=== PATIENT | male | born 1990 | race African-American/Black ===

== ENCOUNTER 2022-05-26 17:21 | Emergency (ER) | payer OTHER ==
--- NOTE | 2022-05-26 17:49 | EDPHYS ---
Physician Documentation [facility] Name: Ever Obrien II Age: 31 yrs Sex: Male : 1990 Arrival Date: 05/26/2022 Time: 17:22 Bed IW4 Private MD: ED Physician Rosalva Harper HPI: 05/26 17:45 This 31 yrs old Black Male presents to ER via Ambulatory with complaints of jh7 insomnia-needs work note. 17:45 Patient reports that he had fatigue from difficulty sleeping recently. Stated that he jh7 slept well last night and just needs a work note to return. No complaints at this time.. Historical: - Allergies: 17:48 No Known Allergies; ss ROS: 17:45 Constitutional: Negative for fever, chills, and weight loss, Cardiovascular: Negative jh7 for chest pain, palpitations, and edema, Respiratory: Negative for shortness of breath, cough, wheezing, and pleuritic chest pain, Abdomen/GI: Negative for abdominal pain, nausea, vomiting, diarrhea, and constipation, MS/Extremity: Negative for injury and deformity, Skin: Negative for injury, rash, and discoloration, Neuro: Negative for headache, weakness, numbness, tingling, and seizure. 17:45 All other systems are negative. Exam: 17:45 Constitutional: This is a well developed, well nourished patient who is awake, alert, jh7 and in no acute distress. Cardiovascular: Regular rate and rhythm with a normal S1 and S2. No gallops, murmurs, or rubs. Normal PMI, no JVD. No pulse deficits. Respiratory: Lungs have equal breath sounds bilaterally, clear to auscultation and percussion. No rales, rhonchi or wheezes noted. No increased work of breathing, no retractions or nasal flaring. Abdomen/GI: Soft, non-tender, with normal bowel sounds. No distension or tympany. No guarding or rebound. No evidence of tenderness throughout. Skin: Warm, dry with normal turgor. Normal color with no rashes, no lesions, and no evidence of cellulitis. MS/ Extremity: Pulses equal, no cyanosis. Neurovascular intact. Full, normal range of motion. Neuro: Awake and alert, GCS 15, oriented to person, place, time, and situation. Normal gait. Vital Signs: 17:45 BP 110 / 92; Pulse 78; Resp 20; Temp 97.3(TE); Pulse Ox 100% on R/A; Pain 0/10; ss MDM: 17:22 Patient medically screened. [facility] 17:30 Differential Diagnosis Normal exam. Data reviewed: vital signs, nurses notes. Data [facility] interpreted: Pulse oximetry: is 100 %. Interpretation: normal. Counseling: I had a detailed discussion with the patient and/or guardian regarding: the historical points, exam findings, and any diagnostic results supporting the discharge/admit diagnosis, to return to the emergency department if symptoms worsen or persist or if there are any questions or concerns that arise at home. Administered Medications: No medications were administered Disposition Summary: 05/26/22 17:49 Discharge Ordered Location: Home [facility] Problem: new [facility] Symptoms: are resolved [facility] Condition: Stable [facility] Diagnosis - Insomnia [facility] Followup: [facility] - With: Private Physician - When: 2 - 3 days - Reason: Recheck today's complaints Discharge Instructions: - Discharge Summary Sheet [facility] - Insomnia [facility] Forms: - Medication Reconciliation Form [facility] - Thank You Letter [facility] - Work release form [facility] Addendum: 05/29/2022 22:41 STAFF ATTESTATION STATEMENT: I was immediately available onsite in the emergency s d2 department for consultation in the care of this patient. I did not see or examine this patient. Rosalva Harper MD. Signatures: Nohemi Min, KATHERINE RN Shantelle Mcrae, TAR HEATER [place] [id number] Rosalva Harper MD MD sd2
--- NOTE | 2022-05-26 17:49 | ER ---
Nurse's Notes [facility] Name: Ever Obrien II Age: 31 yrs Sex: Male : 1990 Arrival Date: 05/26/2022 Time: 17:22 Bed IW4 Private MD: Diagnosis: Insomnia Presentation: 05/26 17:45 Chief complaint: Patient states: Needs a work note because of sleeping issues. Pt ss states after he got some rest earlier he feels better. Coronavirus screen: Client denies travel out of the [place] in the last 14 days. Ebola Screen: Patient denies exposure to infectious person. Patient denies travel to an Ebola-affected area in the 21 days before illness onset. Initial Sepsis Screen: Does the patient meet any 2 criteria? No. Patient's initial sepsis screen is negative. Does the patient have a suspected source of infection? No. Patient's initial sepsis screen is negative. Risk Assessment: Do you want to hurt yourself or someone else? Patient reports no desire to harm self or others. Onset of symptoms is unknown. 17:45 Method Of Arrival: Ambulatory ss 17:45 Acuity: [place] 5 ss Historical: - Allergies: 17:48 No Known Allergies; ss Assessment: 17:55 General: Appears in no apparent distress. comfortable, Behavior is calm, cooperative. ss Pain: Denies pain. Neuro: Level of Consciousness is awake, alert, obeys commands, Oriented to person, place, time, situation. Cardiovascular: Capillary refill < 3 seconds is brisk in bilateral fingers. Respiratory: Airway is patent Respiratory effort is even, unlabored, Respiratory pattern is regular, symmetrical. Derm: Skin is intact, is healthy with good turgor, Skin is pink, warm \T\ dry. normal. Musculoskeletal: Range of motion: intact in all extremities. Vital Signs: 17:45 BP 110 / 92; Pulse 78; Resp 20; Temp 97.3(TE); Pulse Ox 100% on R/A; Pain 0/10; ss ED Course: 17:22 Patient arrived in ED. am2 17:22 [facility] Barbour [facility] 17:22 Rosalva Harper MD is Attending Physician. [facility] 17:48 Triage completed. ss 17:48 Arm band placed on right wrist. ss 17:56 Nohemi Min, RN is Primary Nurse. 17:56 No provider procedures requiring assistance completed. Patient did not have IV access ss during this emergency room visit. Administered Medications: No medications were administered Outcome: 17:49 Discharge ordered by . jamir 17:56 Discharged to home ambulatory. 17:56 Condition: good 17:56 Condition: good 17:56 Discharge instructions given to patient, Instructed on discharge instructions, follow up and referral plans. Demonstrated understanding of instructions, follow-up care. 17:57 Patient left the ED. Signatures: Nohemi Min, RN RN Oly Styles am2 Shantelle Barbour, LUMBER PILER OPERATOR LUMBER PILER OPERATOR [facility]
[2022-05-26 18:42] VITALS: BP 110/92; TEMP 97.3; O2SAT 100
== END 2022-05-26 17:57 | disposition home or self-care (01) ==
LOC: ER 17:21
DX: G47.00 Insomnia, unspecified (principal)
CPT/HCPCS: 99281

== ENCOUNTER 2022-08-13 18:25 | Emergency (ER) | payer OTHER ==
[2022-08-13] MEDS ORDERED: ONDANSETRON 4 MG/2 ML VIAL ONE (19:23)
[2022-08-13] MEDS ORDERED: MORPHINE 4 MG/ML SYR ONE (19:23)
[2022-08-13] MEDS ORDERED: NA CHLORIDE 0.9% 1,000 ML ONE (19:24)
[2022-08-13 19:41] LABS: Absolute Lymphocytes (CBC) 1.4 K/uL (0.7-4.9); Hematocrit 41.9 % (39.6-49.0); Lymphocytes % 18.3 % (15.3-44.8); MCV 82.5 fL (80-100); MPV 7.6 fL (7.6-11.3); RBC Red Blood Cell Count 5.08 M/uL (4.33-5.43)
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
[2022-08-13 20:21] LABS: Potassium 3.8 mEq/L (3.5-5.1)
[2022-08-13] MEDS ORDERED: FENTANYL CITR 100 MCG/2 ML ONE (20:21)
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
[2022-08-14 08:41] VITALS: TEMP 99.2
[2022-08-14 08:54] VITALS: BP 140/94; O2SAT 97
== END 2022-08-13 21:45 | disposition home or self-care (01) ==
LOC: ER 18:25
DX: M25.572 Pain in left ankle and joints of left foot (principal); R07.9 Chest pain, unspecified; M54.9 Dorsalgia, unspecified; V43.53XA Car driver injured in collision with pick-up truck in traffic accident, initial encounter; F17.290 Nicotine dependence, other tobacco product, uncomplicated
CPT/HCPCS: 85025; 80048; 36415; 86900; 86850; 86901; 70450; 72125; 71260; 74177; 71045; 72170; 73630; 73590; Q9967; J3010; J2405; J7030

== ENCOUNTER 2024-01-12 08:02 | Emergency (ER) | payer BC, OTHER ==
--- NOTE | 2024-01-12 08:40 | EDPHYS ---
Physician Documentation [facility] Name: Ever Obrien II Age: 33 yrs Sex: Male : 1990 Arrival Date: 01/12/2024 Time: 08:02 Bed IW2 Private MD: ED Physician Wisam Pennington HPI: 01/11 08:37 This 33 yrs old Black Male presents to ER via Ambulatory with complaints of Toothache. rn 08:37 The patient presents with pain, swelling. Onset: The symptoms/episode began/occurred 2 rn day(s) ago. Duration: The symptoms are continuous. Modifying factors: The symptoms are alleviated by over the counter medications, the symptoms are aggravated by chewing. Severity of symptoms: At their worst the symptoms were moderate, in the emergency department the symptoms have improved. The patient has experienced a previous episode. Patient reports left lower dental pain, has had before, needs dental procedure, woke up with pain and swelling to the left jaw. No fever or chills. Historical: - Allergies: 08:31 No Known Allergies; ll1 - PSHx: 08:31 None; ll1 - Immunization history:: Adult Immunizations up to date. - Infectious Disease History:: Denies. - Social history:: Smoking status: Reported history of juuling and/or vaping. - Family history:: not pertinent. - Hospitalizations: : No recent hospitalization is reported. ROS: 08:37 Constitutional: Negative for fever, chills, and weight loss, ENT: Positive for dental rn pain Respiratory: Negative for shortness of breath, cough, wheezing, and pleuritic chest pain, Exam: 08:37 Constitutional: This is a well developed, well nourished patient who is awake, alert, rn and in no acute distress. ENT: Deep cavity left lower tooth, no evidence of abscess or buccal space swelling Vital Signs: 08:31 BP 149 / 93; Pulse 53; Resp 18; Temp 98.7; Pulse Ox 99% ; Weight 77.11 kg; Height 5 ft. ll1 7 in. ; Pain 6/10; 08:31 BP 149 / 73; Pulse 53; Resp 17; Temp 98.7; Pulse Ox 99% ; ll1 08:31 Body Mass Index 26.63 (77.11 kg, 170.18 cm) ll1 08:31 Pain Scale: Adult ll1 MDM: 08:06 Patient medically screened. rn 08:37 Differential diagnosis: dental caries, dental abscess. Data reviewed: vital signs, rn nurses notes, and as a result, I will discharge patient. Counseling: I had a detailed discussion with the patient and/or guardian regarding the historical points, exam findings, and any diagnostic results supporting the discharge/admit diagnosis, the need for outpatient follow up, to return to the emergency department if symptoms worsen or persist or if there are any questions or concerns that arise at home. Special discussion: I discussed with the patient/guardian in detail that at this point there is no indication for admission to the hospital. It is understood, however, that if the symptoms persist or worsen the patient needs to return immediately for re-evaluation. Based on the history and exam findings, there is no indication for further emergent testing or inpatient evaluation. I discussed with the patient/guardian the need to see a dentist for further evaluation of the symptoms. Administered Medications: No medications were administered Disposition Summary: 01/12/24 08:39 Discharge Ordered Notes: Location: Home rn Problem: an acute exacerbation rn Symptoms: have improved rn Condition: Stable rn Diagnosis - Dental caries, unspecified rn Followup: rn - With: Private Physician - When: As needed - Reason: Recheck today's complaints, Re-evaluation by your physician Discharge Instructions: - Discharge Summary Sheet rn - Dental Caries, Adult rn - Dental Pain rn Forms: - Medication Reconciliation Form rn - Antibiotic garnett feeder - Prescription Opioid Use rn - Patient Portal Instructions rn - Leadership Thank You Letter rn - Work release form ll1 Prescriptions: - Amoxicillin 875 mg Oral Tablet - take 1 tablet ORAL route every 12 hours for 10 days; 20 tablet; Refills: 0, rn Product Selection Permitted - Ibuprofen 800 mg Oral Tablet - take 1 tablet ORAL route every 12 hours As needed take with food; 20 tablet; rn Refills: 0, Product Selection Permitted Signatures: Wisam Pennington MD MD rn Lewis, Lynsay, RN RN 1
--- NOTE | 2024-01-12 08:40 | ER ---
Nurse's Notes [facility] Name: Ever Obrien II Age: 33 yrs Sex: Male : 1990 Arrival Date: 01/12/2024 Time: 08:02 Bed IW2 Private MD: Diagnosis: Dental caries, unspecified Presentation: 01/11 08:31 Chief complaint: Patient states: L lower jaw tooth pain for 3 days. Coronavirus screen: ll1 Client denies travel out of the [place] in the last 14 days. At this time, the client does not indicate any symptoms associated with coronavirus-19. Ebola Screen: Patient denies travel to an Ebola-affected area in the 21 days before illness onset. Initial Sepsis Screen: Does the patient meet any 2 criteria? No. Patient's initial sepsis screen is negative. Does the patient have a suspected source of infection? No. Patient's initial sepsis screen is negative. Risk Assessment: Do you want to hurt yourself or someone else? Patient reports no desire to harm self or others. Onset of symptoms was January 10, 2024. 08:31 Method Of Arrival: Ambulatory ll1 08:31 Acuity: [place] 5 ll1 Triage Assessment: 08:31 General: Appears uncomfortable, Behavior is calm, cooperative, appropriate for age. ll1 Pain: Complains of pain in L lower jaw. 08:31 EENT: Reports pain in left jaw. ll1 Historical: - Allergies: 08:31 No Known Allergies; ll1 - PSHx: 08:31 None; ll1 - Immunization history:: Adult Immunizations up to date. - Infectious Disease History:: Denies. - Social history:: Smoking status: Reported history of juuling and/or vaping. - Family history:: not pertinent. - Hospitalizations: : No recent hospitalization is reported. Screenin:47 [facility] ED Fall Risk Assessment (Adult) History of falling in the last 3 months, ll1 including since admission No falls in past 3 months (0 pts) Confusion or Disorientation No (0 pts) Intoxicated or Sedated No (0 pts) Impaired Gait No (0 pts) Mobility Assist Device Used No (0 pt) Altered Elimination No (0 pt) Score/Fall Risk Level 0 - 2 = Low Risk Maintained a safe environment, Hourly rounding (assess needs \T\ fall precautionary measures) done. Abuse screen: Denies threats or abuse. Nutritional screening: No deficits noted. Tuberculosis screening: No symptoms or risk factors identified. Assessment: 08:47 Reassessment: No changes from previously documented assessment. Patient and/or family ll1 updated on plan of care and expected duration. Pain level reassessed. Patient is alert, oriented x 3, equal unlabored respirations, skin warm/dry/pink. Vital Signs: 08:31 BP 149 / 93; Pulse 53; Resp 18; Temp 98.7; Pulse Ox 99% ; Weight 77.11 kg; Height 5 ft. ll1 7 in. ; Pain 6/10; 08:31 BP 149 / 73; Pulse 53; Resp 17; Temp 98.7; Pulse Ox 99% ; ll1 08:31 Body Mass Index 26.63 (77.11 kg, 170.18 cm) ll1 08:31 Pain Scale: Adult ll1 ED Course: 08:06 Patient arrived in ED. ra3 08:06 Wisam Pennington MD is Attending Physician. rn 08:30 Arm band placed on. ll1 08:32 Triage completed. ll1 08:47 Patient has correct armband on for positive identification. Provided Education on: ll1 finish all prescribed antibiotics. 08:47 No provider procedures requiring assistance completed. Patient did not have IV access ll1 during this emergency room visit. Administered Medications: No medications were administered Medication: 09:51 VIS not applicable for this client. ll1 Outcome: 08:39 Discharge ordered by . rn 08:47 Patient left the ED. ll1 08:47 Discharged to home ambulatory, ll1 08:47 Condition: stable 08:47 Discharge instructions given to patient, Instructed on discharge instructions, follow up and referral plans. medication usage, Demonstrated understanding of instructions, follow-up care, medications, Prescriptions given X 2, Signatures: Wisam Pennington MD MD rn Lewis, Lynsay, RN RN [email or web address] Susan Colvin ra3
--- OUTSIDE RECORDS SUMMARY | 2024-01-12 14:41 | XMS REPORT | Continuity of Care Document ---
Author Name Unknown Address [address] [place] [address] [place] Address [address] [place] [address] 1 [address] [place] [address] Care Team Providers Care Process Improvement Manager Name Role Phone Unavailable Unavailable Unavailable Encounters Start Date/Time End Date/Time Encounter Type Admission Type Attending Clinicians Care Facility Care Department Encounter ID Source 2023-07-03 09:15:30 2023-07-03 09:15:30 Outpatient [facility] [id number] Richi Layton
== END 2024-01-12 08:47 | disposition home or self-care (01) ==
LOC: ER 08:02
DX: K02.9 Dental caries, unspecified (principal)

== ENCOUNTER 2024-04-15 07:51 | Emergency (ER) | payer SELFPAY ==
--- OUTSIDE RECORDS SUMMARY | 2024-04-15 07:53 | XMS REPORT | Continuity of Care Document ---
Author Name Unknown Address [address] [place] [address] [place]connect Address [address] [place] [address] 1 495 [place] [address] Care Team Providers Care Civil Preparedness Coordinator Name Role Phone Unavailable Unavailable Unavailable Encounters Start Date/Time End Date/Time Encounter Type Admission Type Attending Clinicians Care Facility Care Department Encounter ID Source 2023-07-03 09:15:30 2023-07-03 09:15:30 Outpatient [facility] [id number] Richi Layton
--- NOTE | 2024-04-15 08:06 | EDPHYS ---
Physician Documentation [facility] Name: Ever Obrien II Age: 33 yrs Sex: Male : 1990 Arrival Date: 04/15/2024 Time: 07:51 Bed 11 Private MD: ED Physician Waqas Daniel HPI: 04/15 08:01 This 33 yrs old Black Male presents to ER via Unassigned with complaints of work susan release. 08:01 The patient presents to the emergency department with nausea, vomiting, that is susan intermittent. Onset: The symptoms/episode began/occurred 2 day(s) ago. Possible causes: unknown. The symptoms are aggravated by nothing. The symptoms are alleviated by nothing. Associated signs and symptoms: The patient has no apparent associated signs or symptoms. Severity of symptoms: At their worst the symptoms were mild in the emergency department the symptoms have resolved and did so just prior to arrival. The patient has not experienced similar symptoms in the past. Historical: - Allergies: 08:03 No Known Allergies; ss - Home Meds: 08:03 None [Active]; ss - PMHx: 08:03 None; ss - PSHx: 08:03 None; ss - Immunization history:: Adult Immunizations up to date. - Infectious Disease History:: Denies. - Family history:: not pertinent. - Social history:: Smoking status: Patient denies any tobacco usage or history of. ROS: 08:01 Constitutional: Negative for fever, chills, and weight loss, Eyes: Negative for injury, susan pain, redness, and discharge, ENT: Negative for injury, pain, and discharge, Neck: Negative for injury, pain, and swelling, Cardiovascular: Negative for chest pain, palpitations, and edema, Respiratory: Negative for shortness of breath, cough, wheezing, and pleuritic chest pain, Back: Negative for injury and pain, : Negative for injury, bleeding, discharge, and swelling, MS/Extremity: Negative for injury and deformity, Skin: Negative for injury, rash, and discoloration, Neuro: Negative for headache, weakness, numbness, tingling, and seizure, Psych: Negative for depression, anxiety, suicide ideation, homicidal ideation, and hallucinations, Allergy/Immunology: Negative for hives, rash, and allergies, Endocrine: Negative for neck swelling, polydipsia, polyuria, polyphagia, and marked weight changes, Hematologic/Lymphatic: Negative for swollen nodes, abnormal bleeding, and unusual bruising, 08:01 Abdomen/GI: Positive for nausea and vomiting, diarrhea, Exam: 08:01 Constitutional: This is a well developed, well nourished patient who is awake, alert, susan and in no acute distress. Head/Face: Normocephalic, atraumatic. Eyes: Pupils equal round and reactive to light, extra-ocular motions intact. Lids and lashes normal. Conjunctiva and sclera are non-icteric and not injected. Cornea within normal limits. Periorbital areas with no swelling, redness, or edema. ENT: Nares patent. No nasal discharge, no septal abnormalities noted. Tympanic membranes are normal and external auditory canals are clear. Oropharynx with no redness, swelling, or masses, exudates, or evidence of obstruction, uvula midline. Mucous membranes moist. Neck: Trachea midline, no thyromegaly or masses palpated, and no cervical lymphadenopathy. Supple, full range of motion without nuchal rigidity, or vertebral point tenderness. No Meningismus. Chest/axilla: Normal chest wall appearance and motion. Nontender with no deformity. No lesions are appreciated. Cardiovascular: Regular rate and rhythm with a normal S1 and S2. No gallops, murmurs, or rubs. Normal PMI, no JVD. No pulse deficits. Respiratory: Lungs have equal breath sounds bilaterally, clear to auscultation and percussion. No rales, rhonchi or wheezes noted. No increased work of breathing, no retractions or nasal flaring. Abdomen/GI: Soft, non-tender, with normal bowel sounds. No distension or tympany. No guarding or rebound. No evidence of tenderness throughout. Back: No spinal tenderness. No costovertebral tenderness. Full range of motion. Skin: Warm, dry with normal turgor. Normal color with no rashes, no lesions, and no evidence of cellulitis. MS/ Extremity: Pulses equal, no cyanosis. Neurovascular intact. Full, normal range of motion. Neuro: Awake and alert, GCS 15, oriented to person, place, time, and situation. Cranial nerves II-XII grossly intact. Motor strength 5/5 in all extremities. Sensory grossly intact. Cerebellar exam normal. Normal gait. Psych: Awake, alert, with orientation to person, place and time. Behavior, mood, and affect are within normal limits. Vital Signs: 08:01 BP 152 / 84; Pulse 92; Resp 14; Temp 98(TE); Pulse Ox 100% on R/A; Weight 85.28 kg; ss Height 5 ft. 7 in. ; Pain 0/10; 08:01 Body Mass Index 29.44 (85.28 kg, 170.18 cm) 08:01 Pain Scale: Adult ss MDM: 08:00 Medical Screening Exam initiated [facility] 08:03 Differential diagnosis: Nonspecific abd pain, gastritis, pancreatitis, appendicitis, susan viral gastroenteritis, gastroenteritis. Data reviewed: vital signs, nurses notes, lab test result(s), EKG, radiologic studies, plain films. Consideration of Admission/Observation Escalation of care including admission/observation considered. I considered the following discharge prescriptions or medication management in the emergency department Medications were administered in the Emergency Department. See MAR. Test considered but Not performed: Labs: no labs. Historians other than the Patient: pt well informed. Care significantly affected by the following chronic conditions: Diabetes. Counseling: I had a detailed discussion with the patient and/or guardian regarding the historical points, exam findings, and any diagnostic results supporting the discharge/admit diagnosis, the need for outpatient follow up, for definitive care, a family practitioner. Administered Medications: No medications were administered Disposition Summary: 04/15/24 08:04 Discharge Ordered Notes: Location: Home susan Problem: new susan Symptoms: have improved susan Condition: Stable susan Diagnosis - Vomiting susan - Diarrhea, unspecified susan Followup: susan - With: Private Physician - When: 2 - 3 days - Reason: Recheck today's complaints, Continuance of care, Re-evaluation by your physician Discharge Instructions: - Food Choices to Help Relieve Diarrhea, Adult susan - Diarrhea, Adult susan - Diarrhea, Adult, [id number] susan - Vomiting, Adult susan - Discharge Summary Sheet ss Forms: - Medication Reconciliation Form ussan - Antibiotic Education susan - Prescription Opioid Use susan - Patient Portal Instructions susan - Leadership Thank You Letter susan - Work release form Signatures: Waqas Daniel MD MD cha Blanchard, Shelby, RN RN
--- NOTE | 2024-04-15 08:06 | ER ---
Nurse's Notes [facility] Name: Ever Obrien II Age: 33 yrs Sex: Male : 1990 Arrival Date: 04/15/2024 Time: 07:51 Bed 11 Private MD: Diagnosis: Vomiting;Diarrhea, unspecified Presentation: 04/15 08:01 Chief complaint: Patient states: "I had chills two days ago, and yesterday I had N/V/D. ss Today I feel 100 % better, but my work says I need a note from a doctor to go back.". Coronavirus screen: Client denies travel out of the [place] in the last 14 days. Ebola Screen: Patient denies exposure to infectious person. Patient denies travel to an Ebola-affected area in the 21 days before illness onset. Initial Sepsis Screen: Does the patient meet any 2 criteria? No. Patient's initial sepsis screen is negative. Does the patient have a suspected source of infection? No. Patient's initial sepsis screen is negative. Risk Assessment: Do you want to hurt yourself or someone else? Patient reports no desire to harm self or others. Onset of symptoms was April 13, 2024. 08:01 Method Of Arrival: Ambulatory ss 08:01 Acuity: [place] 5 ss Historical: - Allergies: 08:03 No Known Allergies; ss - Home Meds: 08:03 None [Active]; ss - PMHx: 08:03 None; ss - PSHx: 08:03 None; ss - Immunization history:: Adult Immunizations up to date. - Infectious Disease History:: Denies. - Family history:: not pertinent. - Social history:: Smoking status: Patient denies any tobacco usage or history of. Screenin:11 Abuse screen: Denies threats or abuse. Denies injuries from another. Nutritional ss screening: No deficits noted. Tuberculosis screening: Never had TB. Assessment: 08:11 General: Appears in no apparent distress. comfortable, well groomed, well developed, ss well nourished, Behavior is calm, cooperative. Pain: Denies pain. Neuro: Level of Consciousness is awake, alert, obeys commands, Oriented to person, place, time, situation. Respiratory: Airway is patent Respiratory effort is even, unlabored, Respiratory pattern is regular, symmetrical. GI: Pt reports he had N/V/D yesterday after eating shrimp, but reports he is much better today and is requesting a work note to go back on Thursday. EENT: Oral mucosa is moist. Derm: Skin is intact, is healthy with good turgor, Skin is pink, warm \\T\\ dry. normal. Vital Signs: 08:01 BP 152 / 84; Pulse 92; Resp 14; Temp 98(TE); Pulse Ox 100% on R/A; Weight 85.28 kg; ss Height 5 ft. 7 in. ; Pain 0/10; 08:01 Body Mass Index 29.44 (85.28 kg, 170.18 cm) 08:01 Pain Scale: Adult ss ED Course: 07:54 Patient arrived in ED. mg5 08:00 Waqas Daniel MD is Attending Physician. [facility] 08:03 Triage completed. 08:03 Arm band placed on right wrist. 08:11 Patient has correct armband on for positive identification. 08:11 No provider procedures requiring assistance completed. Patient did not have IV access ss during this emergency room visit. Administered Medications: No medications were administered Medication: 08:11 VIS not applicable for this client. ss Outcome: 08:04 Discharge ordered by . [facility] 08:11 Discharged to home ambulatory, with family, 08:11 Condition: good 08:11 Discharge instructions given to patient, significant other, Instructed on discharge instructions, follow up and referral plans. Demonstrated understanding of instructions, follow-up care, 08:13 Patient left the ED. Signatures: Waqas Daniel MD MD cha Blanchard, Shelby, RN RN Kathryn Rosales mg5
[2024-04-15 09:18] VITALS: BP 152/84; TEMP 98; O2SAT 100
== END 2024-04-15 08:13 | disposition home or self-care (01) ==
LOC: ER 07:51
DX: R11.10 Vomiting, unspecified (principal); R19.7 Diarrhea, unspecified
CPT/HCPCS: 99282

== ENCOUNTER 2024-06-14 13:27 | Emergency (ER) | payer SELFPAY ==
--- OUTSIDE RECORDS SUMMARY | 2024-06-14 13:30 | XMS REPORT | Continuity of Care Document ---
Author Name Unknown Address [address] [place] [address] [employer] Address [address] [place] [address] 1 [address] [place] [address] Care Team Providers Care Mill Manager Name Role Phone Unavailable Unavailable Unavailable Encounters Start Date/Time End Date/Time Encounter Type Admission Type Attending Clinicians Care Facility Care Department Encounter ID Source 2023-07-03 09:15:30 2023-07-03 09:15:30 Outpatient [facility] [id number] Richi Layton
--- NOTE | 2024-06-14 14:23 | RAD REPORT ---
EXAM: Chest Pa And Lat (2 Views) HISTORY: 33 years Male COUGH COMPARISON: 08/13/2022 FINDINGS: LUNGS/PLEURA: The lungs are clear. No pleural effusions or pneumothorax. No pulmonary edema. MEDIASTINUM: The mediastinal silhouette is within normal limits. CARDIAC: The cardiac silhouette is within normal limits. UPPER ABDOMEN: No significant abnormality. BONES: No acute abnormality. LINES/TUBES/OTHER: N/A IMPRESSION: No evidence of acute cardiopulmonary disease.
--- NOTE | 2024-06-14 14:38 | ER ---
Nurse's Notes [facility] Name: Ever Obrien II Age: 33 yrs Sex: Male : 1990 Arrival Date: 06/14/2024 Time: 13:27 Bed 12 Private MD: Diagnosis: Acute upper respiratory infection, unspecified Presentation: 06/14 13:39 Chief complaint: Patient states: Cough X1 week. Pt states that he feels better but came cm10 to the ER because his job said that he needed to come get checked. Coronavirus screen: Client denies travel out of the [place] in the last 14 days. Ebola Screen: Patient denies travel to an Ebola-affected area in the 21 days before illness onset. Initial Sepsis Screen: Does the patient meet any 2 criteria? No. Patient's initial sepsis screen is negative. Does the patient have a suspected source of infection? No. Patient's initial sepsis screen is negative. Risk Assessment: Do you want to hurt yourself or someone else? Patient reports no desire to harm self or others. Onset of symptoms was June 14, 2024. 13:39 Method Of Arrival: Ambulatory cm10 13:39 Acuity: [place] 4 cm10 Triage Assessment: 13:40 General: Appears in no apparent distress. comfortable, Behavior is calm, cooperative. cm10 Pain: Complains of pain in head Pain currently is 2 out of 10 on a pain scale. Neuro: No deficits noted. Level of Consciousness is awake, alert, obeys commands, Oriented to person, place, time, situation, Appropriate for age. Respiratory: No deficits noted. Reports cough that is persistent Airway is patent Respiratory effort is even, unlabored, Respiratory pattern is regular, symmetrical. Historical: - Allergies: 13:40 No Known Allergies; cm10 - Home Meds: 13:40 None [Active]; cm10 - PMHx: 13:40 None; cm10 - PSHx: 13:40 None; cm10 - Immunization history:: Adult Immunizations up to date. - Infectious Disease History:: Denies. - Social history:: Smoking status: Reported history of juuling and/or vaping. Screenin:41 [facility] ED Fall Risk Assessment (Adult) History of falling in the last 3 months, cm10 including since admission No falls in past 3 months (0 pts) Confusion or Disorientation No (0 pts) Intoxicated or Sedated No (0 pts) Impaired Gait No (0 pts) Mobility Assist Device Used No (0 pt) Altered Elimination No (0 pt) Score/Fall Risk Level 0 - 2 = Low Risk Oriented to surroundings, Maintained a safe environment, Hourly rounding (assess needs \T\ fall precautionary measures) done. Abuse screen: Denies threats or abuse. Denies injuries from another. Nutritional screening: No deficits noted. Tuberculosis screening: No symptoms or risk factors identified. Assessment: 14:41 General: Appears in no apparent distress. comfortable, Behavior is calm, cooperative. ss Neuro: Level of Consciousness is awake, alert, obeys commands. Vital Signs: 13:39 BP 152 / 59; Pulse 75; Resp 18; Temp 98.2(O); Pulse Ox 100% on R/A; Weight 95.25 kg; cm10 Height 5 ft. 8 in. ; Pain 2/10; 13:39 Body Mass Index 31.93 (95.25 kg, 172.72 cm) cm10 13:39 Pain Scale: Adult cm10 ED Course: 13:30 Patient arrived in ED. ra3 13:32 Zoran Monk FNP-C is PHCP. dr5 13:32 Waqas Daniel MD is Attending Physician. dr5 13:40 Triage completed. cm10 13:40 Arm band placed on right wrist. Patient placed in an exam room, on a stretcher. cm10 13:41 Patient has correct armband on for positive identification. Bed in low position. Call cm10 light in reach. Provided Education on: ER process and procedures. Cardiac monitoring not applicable on this patient. 14:11 Chest Pa And Lat (2 Views) XRAY In Process Unspecified. EDMS 14:37 Sherri Fisher, KATHERINE is Primary Nurse. cm10 14:37 No provider procedures requiring assistance completed. Patient did not have IV access cm10 during this emergency room visit. Administered Medications: No medications were administered Medication: 13:41 VIS not applicable for this client. cm10 Outcome: 14:37 Discharge ordered by . dr5 14:41 Discharged to home ambulatory, 14:41 Condition: good 14:41 Discharge instructions given to patient, family, dc instructions given by STACI Meehan Instructed on discharge instructions, follow up and referral plans. medication usage, Demonstrated understanding of instructions, follow-up care, medications, Prescriptions given X 3, 14:42 Patient left the ED. Signatures: Dispatcher [employer] EDMS Nohemi Delatorre RN RN ss Sherri Fisher RN RN cm10 Susan Colvin ra3 Zoran Monk, SLIP BOX CHANGER-C SLIP BOX CHANGER-Cdr5 Corrections: (The following items were deleted from the chart) 13:41 13:39 BP 152 / 59; Pulse 75bpm; Resp 18bpm; Pulse Ox 100% RA; Temp 98.2F Oral; 95.25 cm10 kg; Height 5 ft. 8 in.; BMI: 31.9; Pain 0/10, Adult; cm10
--- NOTE | 2024-06-14 14:38 | EDPHYS ---
Physician Documentation [facility] Name: Ever Obrien II Age: 33 yrs Sex: Male : 1990 Arrival Date: 06/14/2024 Time: 13:27 Bed 12 Private MD: ED Physician Waqas Daniel HPI: 06/14 13:41 This 33 yrs old Black Male presents to ER via Ambulatory with complaints of Cough - dr5 x1wk. 13:41 The patient or guardian reports cough, described as mild. Patient is a 33-year-old male dr5 with no past history coming in with cough it has been going on for 6 to 7 days. Patient reports having fever the first couple days that resolved. Patient has been taking NyQuil to help with symptoms with mild relief. Patient denies fever today, chest pain, shortness of breath. Patient reports that he is actually feeling better today.. Historical: - Allergies: 13:40 No Known Allergies; cm10 - Home Meds: 13:40 None [Active]; cm10 - PMHx: 13:40 None; cm10 - PSHx: 13:40 None; cm10 - Immunization history:: Adult Immunizations up to date. - Infectious Disease History:: Denies. - Social history:: Smoking status: Reported history of juuling and/or vaping. ROS: 13:41 Constitutional: as per hpi dr5 Exam: 13:41 Constitutional: This is a well developed, well nourished patient who is awake, alert, dr5 and in no acute distress. Head/Face: Normocephalic, atraumatic. Eyes: Pupils equal round and reactive to light, extra-ocular motions intact. Lids and lashes normal. Conjunctiva and sclera are non-icteric and not injected. Cornea within normal limits. Periorbital areas with no swelling, redness, or edema. Neck: Trachea midline, no thyromegaly or masses palpated, and no cervical lymphadenopathy. Supple, full range of motion without nuchal rigidity, or vertebral point tenderness. No Meningismus. Chest/axilla: Normal chest wall appearance and motion. Nontender with no deformity. No lesions are appreciated. Cardiovascular: Regular rate and rhythm with a normal S1 and S2. Normal PMI, no JVD. No pulse deficits. Back: No spinal tenderness. No costovertebral tenderness. Full range of motion. Skin: Warm, dry with normal turgor. Normal color with no rashes, no lesions, and no evidence of cellulitis. MS/ Extremity: Pulses equal, no cyanosis. Neurovascular intact. Full, normal range of motion. Neuro: Awake and alert, GCS 15, oriented to person, place, time, and situation. Cranial nerves II-XII grossly intact. Motor strength 5/5 in all extremities. Sensory grossly intact. Cerebellar exam normal. Normal gait. 13:41 Respiratory: the patient does not display signs of respiratory distress, Respirations: normal, Breath sounds: wheezing: expiratory that is mild, is heard diffusely, Respiratory rate: 20 Vital Signs: 13:39 BP 152 / 59; Pulse 75; Resp 18; Temp 98.2(O); Pulse Ox 100% on R/A; Weight 95.25 kg; cm10 Height 5 ft. 8 in. ; Pain 2/10; 13:39 Body Mass Index 31.93 (95.25 kg, 172.72 cm) cm10 13:39 Pain Scale: Adult cm10 MDM: 13:32 Medical Screening Exam initiated dr5 13:41 Differential Diagnosis: Bronchitis Upper Respiratory Infection Pneumonia. Data dr5 reviewed: vital signs, nurses notes. Care significantly affected by the following Social Determinants of Health: Poor access to healthcare and/or lack of insurance, Poor access to transportation, Problems related to employment. Counseling: I had a detailed discussion with the patient and/or guardian regarding the historical points, exam findings, and any diagnostic results supporting the discharge/admit diagnosis, the presence of at least one elevated blood pressure reading (>120/80) during this emergency department visit, the need for outpatient follow up, for definitive care, a family practitioner, to return to the emergency department if symptoms worsen or persist or if there are any questions or concerns that arise at home. ED course: Will not screen for COVID or flu given patient's duration of symptoms and inability to not treat it. Will get chest x-ray to rule out pneumonia.. 14:39 ED course: No pneumonia noted on x-ray. Will treat patient symptomatically with dr5 albuterol inhaler, steroid Dosepak, and cough medication. Recommended alternating Tylenol Motrin as needed for fever. Recommend increasing hydration.. 06/14 13:40 Order name: Chest Pa And Lat (2 Views) XRAY; Complete Time: 14:36 dr5 Administered Medications: No medications were administered Disposition: 06/15 07:29 Co-signature as Attending Physician, Waqas Daniel MD I agree with the assessment and susan plan of care. Disposition Summary: 06/14/24 14:37 Discharge Ordered Notes: Location: Home dr5 Condition: Stable dr5 Diagnosis - Acute upper respiratory infection, unspecified dr5 Followup: dr5 - With: Emergency Department - When: As needed - Reason: Worsening of condition Followup: dr5 - With: Private Physician - When: 1 - 2 days - Reason: Recheck today's complaints, Continuance of care, Re-evaluation by your physician Discharge Instructions: - Discharge Summary Sheet dr5 - Upper Respiratory Infection, Adult dr5 Forms: - Work release form dr5 - Medication Reconciliation Form dr5 - Patient Portal Instructions dr5 - Leadership Thank You Letter dr5 Prescriptions: - albuterol sulfate 90 mcg/actuation Inhalation HFA Aerosol Inhaler - inhale 1 puff INHALATION route every 4 hours As needed administer via dr5 ventilator; 1 application; Refills: 0, Product Selection Permitted - Medrol (Scott) 4 mg Oral Tablets, Dose Pack - take 1 tablet ORAL route as directed - follow package instructions; 1 packet; dr5 Refills: 0, Product Selection Permitted - benzonatate 100 mg Oral capsule - take 1 capsule ORAL route 3 times per day; 30 capsule; Refills: 0, Product dr5 Selection Permitted Signatures: Dispatcher [employer] Waqas Vega MD MD cha Martinez, Clarissa, RN RN cm10 Zoran Monk, PLANT SCIENCES PROFESSOR-C PLANT SCIENCES PROFESSOR-Cdr5
[2024-06-14 14:47] VITALS: BP 152/59; TEMP 98.2; O2SAT 100
== END 2024-06-14 14:42 | disposition home or self-care (01) ==
LOC: ER 13:27
DX: J06.9 Acute upper respiratory infection, unspecified (principal); F17.290 Nicotine dependence, other tobacco product, uncomplicated
CPT/HCPCS: 71046; 99283